=== PATIENT | female | born 1945 | race Caucasian/White ===

== ENCOUNTER 2019-07-19 18:54 | Emergency (ER) | payer MEDICARE ==
--- OUTSIDE RECORDS SUMMARY | 2019-07-19 18:59 | XMS REPORT | Continuity of Care Document ---
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 HST 10/31/17: AHI 20.9, O2 kyle 82% Social History Type Date Description Comments Sex Unknown Tobacco Use Start: Unknown End: Former Cigarette Smoker Unknown Smoking Status Reviewed: 06/21/19 Former Cigarette Smoker ETOH Use consumes 3-4 glasses per week Tobacco Use Start: Unknown End: Patient is a former smoker Unknown Recreational Drug Use Denies Drug Use Exercise Type/Frequency Exercises sporadically Allergies, Adverse Reactions, Alerts Active Allergies Reaction Severity Comments Date Penicillin Rash 10/08/2017 Simvastatin Elevated LFTs 10/08/2017 Tricor Nausea and Vomiting 10/08/2017 Metoprolol Fatigue 10/08/2017 Advair Atrial Fibrillation 10/08/2017 Lipitor Myalgias 10/08/2017 Lisinopril Cough 10/08/2017 Medications Active Medications SIG Qnty Indications Ordering Provider Date Levalbuterol Tartrate 1 puff 2-3 times 15gm J45.909 Cary Yusuf MD daily as needed 45mcg/Act Aerosol for sob Spiriva Respimat 1 puff one time 4gm J45.909 Cary Yusuf MD 09/24/2018 per day 1.25mcg/Act Aerosol Citalopram 1 by mouth every Unknown Hydrobromide day 20mg Tablets Omeprazole 1 by mouth every Unknown 20mg Capsules day DR Flovent HFA 2 puffs twice 36gm Verena 220mcg/Act daily, rinse MOISÉS Meade Aerosol mouth after use as needed Rosuvastatin Calcium 1 by mouth every Unknown 5mg night at bedtime Tablets Vitamin D3 1 by mouth every Unknown 1000Unit day Capsules Caltrate 600 1 tab by mouth Unknown 1500(600Ca) daily mg Tablets Fluticasone Propionate 2 sprays each Unknown nostril qd as 50mcg/Act Suspension needed Cetirizine HCL 1 by mouth every Unknown 10mg day Tablets Crestor 1 by mouth every Unknown 5mg Tablets day Proair HFA 2 puffs every 4 Unknown 108(90Base) hours as needed mcg/Act Aerosol Eliquis 1 by mouth twice Unknown 5mg Tablets a day Rosario Allergy 1 by mouth every Unknown 180mg day Tablets Nasacort Allergy 24HR 2 puffs each nare Unknown every in the 55mcg/Act Aerosol morning Immunizations Description No Information Available Vital Signs Date Vital Result Comment 06/21/2019 11:16am Height 61 inches 5'1" Weight 136.00 lb Heart Rate 74 /min BP Systolic 118 mmHg BP Diastolic 66 mmHg O2 % BldC Oximetry 97 % BMI (Body Mass Index) 25.7 kg/m2 04/12/2019 12:56pm Height 61 inches 5'1" Weight 137.00 lb Heart Rate 78 /min BP Systolic 134 mmHg BP Diastolic 60 mmHg O2 % BldC Oximetry 98 % BMI (Body Mass Index) 25.9 kg/m2 Results Description No Information Available Procedures Date Code Description Status 05/26/2019 65537 Holter Monitor Review (24 hr)dr mayberry & interp only Completed 05/25/2019 44076 ECHO Transthoracic, Real-Time 2D With Doppler And Completed Color Flow 05/25/2019 08401 ECHO Transthoracic, Real-Time 2D With Doppler And Completed Color Flow 05/24/2019 97747 ECG Monitor/Recording W/Visual Superimposition Completed Scanning 05/24/2019 89813 ECG Monitor/Recording W/Visual Superimposition Completed Scanning 02/10/2019 43726 Polysomnography Sleep Staging 4+ Parameters W/Cpap Completed 02/16/2017 [id number] Colonoscopy Completed 03/21/2016 [id number] Mammogram Completed 02/21/2015 [id number] Mammogram Completed 01/18/2014 [id number] Mammogram Completed 07/07/2012 [id number] Bone Mineral Density Test Completed 07/07/2012 [id number] Mammogram Completed 08/28/2011 [id number] Colonoscopy Completed 05/22/2011 [id number] Mammogram Completed 06/01/2009 [id number] Mammogram Completed 03/13/2008 [id number] Bone Mineral Density Test Completed 03/13/2008 [id number] Mammogram Completed 12/23/2006 [id number] Mammogram Completed 11/24/2005 [id number] Bone Mineral Density Test Completed 07/18/2005 [id number] Colonoscopy Completed 01/07/1999 [id number] Colonoscopy Completed Medical Devices Description No Information Available Encounters Type Date Location Provider Dx Diagnosis Office Visit 04/12/2019 [facility] Verena G47.33 Obstructive sleep 1:00p [facility] apnea (adult) [employer] (pediatric) 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 J45.909 Unspecified asthma, uncomplicated Office Visit 03/01/2019 [facility] Verena G47.33 Obstructive sleep 1:00p [facility] Meade apnea (adult) [facility] (pediatric) J45.909 Unspecified asthma, uncomplicated Office Visit 12/30/2018 [facility] Verena J45.909 Unspecified 11:30a [facility] Meade 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, 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 G47.33 Obstructive sleep apnea (adult) (pediatric) Assessments Date Code Description Provider 06/21/2019 G47.33 Obstructive sleep apnea (adult) Cary Yusuf MD (pediatric) 06/21/2019 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 Cary Yusuf MD classified elsewhere 06/21/2019 J45.909 Unspecified asthma, uncomplicated Cary Yusuf MD 05/26/2019 R00.2 Palpitations Victorino Bhatia, DO FACC 05/26/2019 I48.0 Paroxysmal atrial fibrillation Victorino Bhatia, DO FACC 05/25/2019 R00.2 Palpitations Victorino Bhatia, DO FACC 05/25/2019 R00.2 Palpitations Traveling ECHO 1 05/24/2019 R00.2 Palpitations Victorino Pizanono, DO FACC 05/24/2019 R00.2 Palpitations Nurse Visit IC 05/24/2019 I48.0 Paroxysmal atrial fibrillation Victorino Bhatia, DO FACC 05/24/2019 I48.0 Paroxysmal atrial fibrillation Nurse Visit IC 04/12/2019 G47.33 Obstructive sleep apnea (adult) Verena Meade NP (pediatric) 04/12/2019 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 Verena Meade NP classified elsewhere 04/12/2019 J45.909 Unspecified asthma, uncomplicated Verena Meade SENIOR QUANTITY SURVEYOR 03/01/2019 G47.33 Obstructive sleep apnea (adult) Verena Meade NP (pediatric) 03/01/2019 J45.909 Unspecified asthma, uncomplicated Verena Meade, SENIOR QUANTITY SURVEYOR 02/10/2019 G47.33 Obstructive sleep apnea (adult) Cary Yusuf MD (pediatric) 12/30/2018 J45.909 Unspecified asthma, uncomplicated Verena Meade, SENIOR QUANTITY SURVEYOR 12/30/2018 G47.33 Obstructive sleep apnea (adult) Verena Meade NP (pediatric) Plan of Treatment Future Appointment(s):08/03/2019 10:45 am - Cary Yusuf MD [facility]06/21/2019 - Cary Yusuf MDG47.33 Obstructive sleep apnea (adult) (pediatric)Follow up:6 wferqA61.37 Central sleep apnea in conditions classified tecjnsxluJ05.909 Unspecified asthma, uncomplicated Functional Status Description No Information Available Mental Status Description No Information Available Referrals Description No Information Available
--- OUTSIDE RECORDS SUMMARY | 2019-07-19 18:59 | XMS REPORT | Continuity of Care Document ---
:1945 External Reference #:[id number] Author Name Lilliam Modi M.D. (transmitted by agent of provider Nandini Randall) Address [address] 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 HST 10/31/17: AHI 20.9, O2 kyle 82% Supraventricular premature beats Lilliam Modi M.D. Onset: 07/04/2019 Atrial flutter Lilliam Modi M.D. Onset: 07/04/2019 Paroxysmal atrial fibrillation Lilliam Modi M.D. Onset: 07/04/2019 Social History Type Date Description Comments Sex Unknown Tobacco Use Start: Unknown End: Former Cigarette Smoker Unknown Smoking Status Reviewed: 07/04/19 Former Cigarette Smoker ETOH Use consumes 3-4 glasses per week ETOH Use consumes 1-2 glasses of wine per week Tobacco Use Start: Unknown End: [...] Medications SIG Qnty Indications Ordering Provider Date Multaq 1 by mouth twice 180tabs I48.0 Lilliam Modi, 07/04/2019 400mg Tablets a day M.Medina Spiriva Respimat 1 puff one time 4gm J45.909 Cary Yusuf, 09/24/2018 per day 1.25mcg/Act Aerosol Citalopram 1 by mouth every Unknown Hydrobromide day 20mg Tablets Omeprazole 1 by mouth every Unknown 20mg day Capsules DR Flovent HFA 2 puffs twice 36gm Verena 220mcg/Act daily, rinse Halina, EXPERIMENTAL PSYCHOLOGIST Aerosol mouth after use as needed Rosuvastatin Calcium 1 by mouth every Unknown night at bedtime 5mg Tablets Vitamin D3 1 by mouth every Unknown 1000Unit day Capsules Caltrate 600 1 tab by mouth Unknown daily 1500(600Ca) mg Tablets Cetirizine HCL 1 by mouth every Unknown 10mg day Tablets Crestor 1 by mouth every Unknown 5mg Tablets day Proair HFA 2 puffs every 4 Unknown 108(90Base) hours as needed mcg/Act Aerosol Eliquis 1 by mouth twice Unknown 5mg Tablets a day Rosario Allergy 1 by mouth every Unknown 180mg day Tablets Nasacort Allergy 24HR 2 puffs each Unknown nare every in 55mcg/Act Aerosol the morning Immunizations Description No Information Available Vital Signs Date Vital Result Comment 07/04/2019 1:56pm Height 61 inches 5'1" Weight 142.00 lb with shoes Heart Rate 74 /min BP Systolic 122 mmHg Ra BP Diastolic 66 mmHg Ra BP Systolic Sitting 118 mmHg LA BP Diastolic Sitting 62 mmHg LA BP Systolic Standing 120 mmHg BP Diastolic Standing 82 mmHg BMI (Body Mass Index) 26.8 kg/m2 Ejection Fraction 60-65% Echo 05/25/2019 06/21/2019 11:16am Height 61 inches 5'1" Weight 136.00 lb Heart Rate 74 /min BP Systolic 118 mmHg BP Diastolic 66 mmHg O2 % BldC Oximetry 97 % BMI (Body Mass Index) 25.7 kg/m2 Results Description No Information Available Procedures Date Code Description Status 07/04/2019 66746 EKG Tracing & Interpretation Completed 05/26/2019 72745 Holter Monitor Review (24 hr)dr mayberry & interp only Completed 05/25/2019 86393 ECHO Transthoracic, Real-Time 2D With Doppler And Completed Color Flow 05/25/2019 35719 ECHO Transthoracic, Real-Time 2D With Doppler And Completed Color Flow 05/24/2019 70792 ECG Monitor/Recording W/Visual Superimposition Completed Scanning 05/24/2019 84226 ECG Monitor/Recording W/Visual Superimposition Completed Scanning 02/10/2019 59193 Polysomnography Sleep Staging 4+ Parameters W/Cpap Completed 02/16/2017 [id number] Colonoscopy Completed 03/21/2016 [id number] Mammogram Completed 02/21/2015 [id number] Mammogram Completed 01/18/2014 [id number] Mammogram Completed 07/07/2012 [id number] Bone Mineral Density Test Completed 07/07/2012 [id number] Mammogram Completed 08/28/2011 [id number] Colonoscopy Completed 05/22/2011 [id number] Mammogram Completed 06/01/2009 [id number] Mammogram Completed 03/13/2008 [id number] Bone Mineral Density Test Completed 03/13/2008 [id number] Mammogram Completed 12/23/2006 [id number] Mammogram Completed 11/24/2005 [id number] Bone Mineral Density Test Completed 07/18/2005 [id number] Colonoscopy Completed 01/07/1999 [id number] Colonoscopy Completed Medical Devices Description No Information Available Encounters Type Date Location Provider Dx Diagnosis Office Visit 06/21/2019 [facility] And Cary Yusuf, G47.33 Obstructive sleep 11:30a [facility] apnea (adult) [facility] (pediatric) 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 J45.909 Unspecified asthma, uncomplicated Office Visit 04/12/2019 [facility] Verena G47.33 Obstructive sleep 1:00p [facility] Meade apnea (adult) [facility] (pediatric) 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 07/04/2019 I48.92 Unspecified atrial flutter Lilliam Modi M.D. 07/04/2019 R07.9 Chest pain, unspecified Lilliam Modi M.D. 07/04/2019 J44.9 Chronic obstructive pulmonary disease, Lilliam Modi M.D. unspecified 07/04/2019 G47.33 Obstructive sleep apnea (adult) Lilliam Modi M.D. (pediatric) 07/04/2019 I49.1 Atrial premature depolarization Lilliam Modi M.D. 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 Bhatia, DO FACC 05/26/2019 I48.0 Paroxysmal atrial fibrillation Victorino S. Bhatia, DO FACC 05/25/2019 R00.2 Palpitations Victorino S. Bhatia, DO FACC 05/25/2019 R00.2 Palpitations Traveling ECHO 1 05/24/2019 R00.2 Palpitations Victorino S. Bhatia, DO FACC 05/24/2019 R00.2 Palpitations Nurse Visit IC 05/24/2019 I48.0 Paroxysmal atrial fibrillation Victorino S. 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 at [facility]07/12/2019 11:00 am - Lilliam Modi M.D. at [facility]08/03/2019 10:45 am - Cary Yusuf MD at [facility]07/04/2019 - Lilliam Modi M.D.I48.0 Paroxysmal atrial fibrillationNew Medication:Multaq 400 mg - 1 by mouth twice a dayNew Orders: Stress Test, Exercise Nuclear, Ordered: 07/04/19Comments:Today you are in normal rhythm, early beats, NOT afib.NEW MEDICINE: Multaq to help keep you in the normal rhythm.Follow up:OV after stress test, with ECG (new medication) .Recommendations:NEW: MULTAQ 400 mg twice daily Continue Eliquis for stroke prevention. Avoid alcohol. Continue CPAP. Continue anticoagulation. OPTIONS: Future, may send you to an EP MD for ablation.I48.92 Unspecified atrial flutterComments:Strips suspicious for flutter.R07.9 Chest pain, unspecifiedNew Orders:Stress Test, Exercise Nuclear, Ordered: 07/04/19J44.9 Chronic obstructive pulmonary disease, unspecifiedComments:Longstanding Dr Yusuf follows.G47.33 Obstructive sleep apnea (adult) (pediatric)Comments:on CPAP, Moderate.I49.1 Atrial premature depolarization Functional Status Description No Information Available Mental Status Description No Information Available Referrals Description No Information Available
--- OUTSIDE RECORDS SUMMARY | 2019-07-19 18:59 | XMS REPORT | Continuity of Care Document ---
:1945 External Reference #:[id number] Author Name Lilliam Modi M.D. (transmitted by agent of provider Nydia Mera) Address [address] 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 HST 10/31/17: AHI 20.9, O2 kyle 82% Tricuspid valve disorder, non-rheumatic Lilliam Modi M.D. Onset: 07/04/2019 Supraventricular premature beats Lilliam Modi M.D. Onset: [...] Medications SIG Qnty Indications Ordering Provider Date Sotalol HCL (AF) 2 tab by 180tabs Lilliam Modi, 07/07/2019 80mg mouth twice a M.D. Tablets day Spiriva Respimat 1 puff one time 4gm J45.909 Cary Yusuf, 09/24/2018 per day 1.25mcg/Act Aerosol Citalopram 1 by mouth every Unknown Hydrobromide day 20mg Tablets Omeprazole 1 by mouth every Unknown 20mg day Capsules DR Flovent HFA 2 puffs twice 36gm Verena 220mcg/Act daily, rinse Halina, SUPERVISOR WHEEL SHOP Aerosol mouth after use as needed Rosuvastatin [...] nare every in 55mcg/Act Aerosol the morning History Medications Multaq 1 by mouth 180tabs I48.0 Lilliam Modi M.D. 07/04/2019 - 400mg twice a day 07/07/2019 Tablets Medications Administered in Office Medication SIG Qnty Indications Ordering Provider Date Inj, Regadenoson, 0.1 MG Favio Banegas M.D., 07/12/2019 Injection FACC, FASNC Technetium TC 99M Favio Banegas M.D., 07/12/2019 Tetrofosmin, Per Unit Dose KAMERON EID Up To 40 Millicuries Injection Technetium TC 99M Favio Banegas M.D., 07/12/2019 Tetrofosmin, Per Unit Dose FACCKAMERON Up To 40 Millicuries Injection Immunizations Description No Information Available Vital Signs [...] Available Procedures Date Code Description Status 07/04/2019 13020 EKG Tracing & Interpretation Completed 05/26/2019 20122 Holter Monitor Review (24 hr)dr review & interp only Completed 05/25/2019 25121 ECHO Transthoracic, Real-Time 2D With Doppler And Completed Color Flow 05/25/2019 63744 ECHO Transthoracic, Real-Time 2D With Doppler And Completed Color Flow 05/24/2019 29762 ECG Monitor/Recording W/Visual Superimposition Completed Scanning 05/24/2019 63039 ECG Monitor/Recording W/Visual Superimposition Completed Scanning 02/10/2019 44673 Polysomnography Sleep Staging 4+ Parameters W/Cpap Completed 02/16/2017 [id number] Colonoscopy Completed 03/21/2016 [id number] Mammogram Completed 02/21/2015 [id number] Mammogram Completed 01/18/2014 [id number] Mammogram Completed 07/07/2012 [id number] Bone Mineral Density Test Completed 07/07/2012 [id number] Mammogram Completed 08/28/2011 [id number] Colonoscopy Completed 05/22/2011 [id number] Mammogram Completed 06/01/2009 [id number] Mammogram Completed 03/13/2008 [id number] Bone Mineral Density Test Completed 03/13/2008 [id number] Mammogram Completed 12/23/2006 [id number] Mammogram Completed 11/24/2005 [id number] Bone Mineral Density Test Completed 07/18/2005 [id number] Colonoscopy Completed 01/07/1999 [id number] Colonoscopy Completed Medical Devices Description No Information Available Encounters Type Date Location Provider Dx Diagnosis Office Visit 07/04/2019 [facility] Lilliam Ly, I48.0 Paroxysmal atrial 2:10p Of [facility] [place] fibrillation I48.92 Unspecified atrial flutter R07.9 Chest pain, unspecified J44.9 Chronic obstructive pulmonary disease, unspecified G47.33 Obstructive sleep apnea (adult) (pediatric) I49.1 Atrial premature depolarization I36.1 Nonrheumatic tricuspid (valve) insufficiency Office Visit 06/21/2019 11:30a Pulmonology And Cary G47.33 Obstructive sleep [facility] [place] apnea (adult) [facility] (pediatric) 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 J45.909 Unspecified asthma, uncomplicated Office Visit 04/12/2019 [facility] Verena G47.33 Obstructive sleep 1:00p [facility] Meade apnea (adult) [facility] (pediatric) 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 07/04/2019 I48.92 Unspecified atrial flutter Lilliam Modi M.D. 07/04/2019 R07.9 Chest pain, unspecified Lilliam Modi M.D. 07/04/2019 J44.9 Chronic obstructive pulmonary disease, Lilliam Modi M.D. unspecified 07/04/2019 G47.33 Obstructive sleep apnea (adult) Lilliam Modi M.D. (pediatric) 07/04/2019 I49.1 Atrial premature depolarization Lilliam Modi M.D. 07/04/2019 I36.1 Nonrheumatic tricuspid (valve) Lilliam Modi M.D. 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 Cary Yusuf MD classified elsewhere 06/21/2019 J45.909 Unspecified asthma, uncomplicated Cary Yusuf MD 05/26/2019 R00.2 Palpitations Victorino Bhatia, DO [facility] 05/26/2019 I48.0 Paroxysmal atrial fibrillation Victorino Bhatia, DO [facility] 05/25/2019 R00.2 Palpitations Victorino Bhatia, DO [facility] 05/25/2019 R00.2 Palpitations Traveling ECHO 1 05/24/2019 R00.2 Palpitations Victorino Bhatia, DO [facility] 05/24/2019 R00.2 Palpitations Nurse Visit IC 05/24/2019 I48.0 Paroxysmal atrial fibrillation Victorino Bhatia, DO [facility] 05/24/2019 I48.0 Paroxysmal atrial fibrillation Nurse Visit IC 04/12/2019 G47.33 Obstructive sleep apnea (adult) Verena Meade NP (pediatric) 04/12/2019 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 Verena Meade NP classified elsewhere 04/12/2019 J45.909 Unspecified asthma, uncomplicated Verena Meade NP 03/01/2019 G47.33 Obstructive sleep apnea (adult) Verena Meade NP (pediatric) 03/01/2019 J45.909 Unspecified asthma, uncomplicated Verena Meade NP 02/10/2019 G47.33 Obstructive sleep apnea (adult) Cary Yusuf MD (pediatric) Plan of Treatment Future Appointment(s):07/22/2019 11:00 am - Radha Flores NMichelle at [facility]08/03/2019 10:45 am - Cary Yusuf MD at [facility]07/04/2019 - Lilliam Modi M.D.I48.0 Paroxysmal atrial fibrillationNew Medication:Multaq 400 mg - 1 by mouth twice a dayComments:Today you are in normal rhythm, early beats, NOT afib.NEW MEDICINE: Multaq to help keep you in the normal rhythm.Follow up:OV after stress test, with ECG (new medication).Recommendations:NEW: MULTAQ 400 mg twice daily Continue Eliquis for stroke prevention. Avoid alcohol. Continue CPAP. Continue anticoagulation. OPTIONS: Future, may send you to an EP MD for ablation.I48.92 Unspecified atrial flutterComments:Strips suspicious for flutter.R07.9 Chest pain, memmgcjpcvqM10.9 Chronic obstructive pulmonary disease, unspecifiedComments: Longstanding Dr Yusuf follows.G47.33 Obstructive sleep apnea (adult) (pediatric )Comments:on CPAP, Moderate.I49.1 Atrial premature depolarizationComments:On ECG today.I36.1 Nonrheumatic tricuspid (valve) insufficiencyComments:This is related to lungs and rhythm. Functional Status Description No Information Available Mental Status Description No Information Available Referrals Description No Information Available
--- OUTSIDE RECORDS SUMMARY | 2019-07-19 18:59 | XMS REPORT | Continuity of Care Document ---
:1945 External Reference #:[id number] Author Name Michele Brothers M.D. 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 Onset: 08/2014 pseudohole Nuclear senile cataract Victor Hugo Corbett M.D. Onset: 10/12/2014 Vitreous degeneration Victor Hugo Corbett M.D. Onset: 10/12/2014 Pseudophakia Victor Hugo Corbett M.D. Onset: 10/12/2014 Combined form of senile cataract Deloris Lara O.D. Onset: 04/16/2016 Social History Type Date Description Comments Sex Unknown ETOH Use Occasionally consumes alcohol Tobacco Use Start: Unknown Patient has never smoked Recreational Drug Use Never Used Drugs Smoking Status Reviewed: 06/08/19 Patient has never smoked Allergies, Adverse Reactions, Alerts Active Allergies Reaction Severity Comments Date Penicillins 10/11/2014 Medications Active Medications SIG Qnty Indications Ordering Provider Date Crestor Unknown 10mg Tablets Flovent HFA as needed Unknown 110mcg/Act Aerosol Prevacid Unknown 15mg Capsules Aspirin Low Dose 1 by mouth every Unknown 81mg day Tablets Omeprazole Unknown 20mg Capsules Rosuvastatin Calcium Unknown 5mg Tablets Cassie Cortez, 5mg Tablets MD Immunizations Description No Information Available Vital Signs Description No Information Available Results Description No Information Available Procedures Description No Information Available Medical Devices Description No Information Available Encounters Description No Information Available Assessments Date Code Description Provider 06/08/2019 H25.12 Age-related nuclear cataract, left eye Michele Brothers M.D. 06/08/2019 H35.341 Macular cyst, hole, or pseudohole, right Mihcele Brothers M.D. eye Plan of Treatment 06/08/2019 - Michele Brothers M.D.H25.12 Age-related nuclear cataract, left eyeComments:Smoking can increase the risk of developing or worsening any eye related disease, as well as affect your overall health. If you are a smoker, we strongly recommend that you quit.If you are not a smoker, we strongly recommend that you do not start. You have been diagnosed with a cataract in your lefteye. If you are happy with your vision as it is now, then we will see you at your next scheduled appointment. If you feel like your vision is getting worse before your scheduled appointment, please call Pamela at .Follow up:1 Year Follow Up DFE You can expect to have your eyes dilated at your next visit. If Dr. Brothers orders any additional testing, it may require extra time. We recommend that you bring sunglasses, as dilation drops often make you light sensitive until they wear off. We always recommend you bring someone to drive you home if you are uncomfortable driving with your eyes dilated. If you have any questions before your next visit, feel free to call our office at .H35.341 Macular cyst, hole, or pseudohole, right eye Functional Status Description No Information Available Mental Status Description No Information Available Referrals Description No Information Available
[2019-07-19 19:39] LABS: ABS Basophils 0.1 10^3/ul (0-0.2); ABS Eosinophils 0.8 10^3/ul (0-0.6); ABS Lymphocytes 2.2 10^3/ul (1.0-4.8); ABS Monocytes 0.4 10^3/ul (0-0.8); Eosinophil % 11.9 %; Hematocrit 40 % (35-47); Hemoglobin 13.6 g/dL (12.0-16.0); Lymphocyte % 34.3 %; Mean Corpuscular HGB Conc 34 g/dL (31-36); Mean Corpuscular Hemoglobin 33 pg (27-31); Mean Corpuscular Volume 97 fL (80-97); Mean Platelet Volume 7.5 fL (7.4-10.4); Platelet Count 188 10^3/uL (150-450); Red Blood Count 4.09 10^6 /uL (3.70-4.87); Red Cell Distribution Width 12 % (10-15); White Blood Count 6.4 10^3/uL (3.5-10.8)
[2019-07-19 19:52] LABS: INR 1.08 (0.82-1.09)
[2019-07-19 19:57] LABS: Albumin/Globulin Ratio 1.5 (1-3); BUN/Creatinine Ratio 12.9 (8-20); Calcium 10.2 mg/dL (8.6-10.3); EGFR African American 79.1 (>60); EGFR Non-African American 65.4 (>60); Globulin 2.6 g/dL (2-4); Potassium 3.9 mmol/L (3.5-5.0); Total Bilirubin 0.4 mg/dL (0.2-1.0); Total Protein 6.6 g/dL (6.4-8.9)
--- NOTE | 2019-07-19 21:46 | ED ---
HPI Chest Pain - HPI Summary HPI Summary: Patient is a 74 y/o F presenting to [facility] via EMS for chief complaint of substernal chest pain. CP onset around 1500 07/19/19 while the patient was watching TV. She initially thought she was experiencing GERD and took some of her omeprazole. However, she did not experience relief in Sx. Patient states that she also experienced numbness of her arms bilaterally. She checked her BP and noted it was elevated. Patient states that she has not experienced a similar previous presentation of Sx. Patient states that the pain has decreased in its severity, noting that at its worst the pain was a 8-9/10 in severity and is now a 4/10. No other medications were taken BUTTONHOLER. She reports Hx of afib and is currently on Eliquis. She denies Hx of [place] but notes Hx of asthma. FMHx of cardiac disease, aneurysm, and CVA reported. PSHx of deviated septum repair reported. She is a former smoker of 40 years, denies alcohol and substance usage. Home medications and allergies are reviewed. - History of Current Complaint Chief Complaint: EDChestPainROMI Time Seen by Provider: 07/19/19 20:41 Hx Obtained From: Patient Onset/Duration: Started Hours Ago, Still Present Timing: Constant, Lasting Hours Current Severity: Moderate Pain Intensity: 4 Pain Scale Used: 0-10 Numeric Chest Pain Location: Lower Sternal Associated Signs and Symptoms: Positive: Chest Pain, Numbness - arms, Other: - elevated BP - Allergy/Home Medications Allergies/Adverse Reactions: Allergies Allergy/AdvReac Type Severity Reaction Status Date / Time latex Allergy Itching Verified 07/19/19 19:04 Penicillins Allergy Rash Verified 07/19/19 19:04 Home Medications: Home Medications Apixaban* [Eliquis*] 5 mg PO BID 07/19/19 [History Confirmed 07/19/19] Cholecalciferol TAB* [Vitamin D TAB*] 1,000 unit PO DAILY 07/19/19 [History Confirmed 07/19/19] Citalopram TAB* [CeleXA TAB*] 20 mg PO DAILY 07/19/19 [History Confirmed ] Fluticasone HFA 220 mcg(NF) [Flovent Hfa 220 Mcg(NF)] 2 puff INH DAILY 07/19/19 [History Confirmed 07/19/19] Levalbuterol HFA INHALER* [Xopenex Hfa Inhaler*] 1 puff INH TID 07/19/19 [ History Confirmed 07/19/19] Omeprazole CAP (NF) [Prilosec CAP* 20 MG] 20 mg PO DAILY 07/19/19 [History Confirmed 07/19/19] Rosuvastatin (NF) [Crestor (NF)] 5 mg PO QPM 07/19/19 [History Confirmed ] Sotalol TAB* [Betapace 80 MG TAB*] 40 mg PO BID 07/19/19 [History Confirmed 02/27] Tiotropium CAPSULE (NF) [Spiriva CAPSULE (NF)] 1 puff INH DAILY 07/19/19 [ History Confirmed 07/19/19] PMH/Surg Hx/FS Hx/Imm Hx Endocrine/Hematology History: Denies: Hx Diabetes Cardiovascular History: Reports: Other Cardiovascular Problems/Disorders - HX OF AFIB Denies: Hx Hypertension, Hx Pacemaker/ICD Respiratory History: Reports: Hx Asthma, Other Respiratory Problems/Disorders - CHRONIC SINSUTIS GI History: Reports: Hx Gastroesophageal Reflux Disease, Hx Hiatal Hernia Musculoskeletal History: Reports: Hx Arthritis - HANDS, Hx Osteoporosis Denies: Hx Rheumatoid Arthritis Sensory History: Denies: Hx Cataracts, Hx Contacts or Glasses, Hx Hearing Aid Opthamlomology History: Denies: Hx Cataracts, Hx Contacts or Glasses Neurological History: Reports: Other Neuro Impairments/Disorders - PAIN CLINIC PATIENT Psychiatric History: Reports: Hx Anxiety Denies: Hx Panic Disorder - Cancer History Hx Chemotherapy: No Hx Radiation Therapy: No - Surgical History Surgery Procedure, Year, and Place: 1997 [place]. [place] [facility] [place] 08/2013 [place]. RIGHT CATARACT Hx Anesthesia Reactions: No Infectious Disease History: No Infectious Disease History: Denies: Traveled Outside the [place] in Last 30 Days - Family History Known Family History: Positive: Cardiac Disease, Other - CVA, aneurysm - Social History Alcohol Use: Occasionally Substance Use Type: Reports: None Smoking Status (MU): Former Smoker - Additional Comments History Additional Comments: PMHx of afib, GERD, asthma PSHx of deviated septum FMHx of cardiac disease, CVA, aneurysm Review of Systems - ROS Summary Review of Systems Summary: Home Medications Medication Instructions Recorded Confirmed Type Apixaban* [Eliquis*] 5 mg PO BID 07/19/19 07/19/19 History Cholecalciferol TAB* [Vitamin D 1,000 unit PO DAILY 07/19/19 07/19/19 History TAB*] Citalopram TAB* [CeleXA TAB*] 20 mg PO DAILY 07/19/19 07/19/19 History Fluticasone HFA 220 mcg(NF) 2 puff INH DAILY 07/19/19 07/19/19 History [Flovent Hfa 220 Mcg(NF)] Levalbuterol HFA INHALER* [Xopenex 1 puff INH TID 07/19/19 07/19/19 History Hfa Inhaler*] Omeprazole CAP (NF) [Prilosec CAP* 20 mg PO DAILY 07/19/19 07/19/19 History 20 MG] Rosuvastatin (NF) [Crestor (NF)] 5 mg PO QPM 07/19/19 07/19/19 History Sotalol TAB* [Betapace 80 MG TAB*] 40 mg PO BID 07/19/19 07/19/19 History Tiotropium CAPSULE (NF) [Spiriva 1 puff INH DAILY 07/19/19 07/19/19 History CAPSULE (NF)] Positive: Chest Pain, Other - elevated BP Positive: Numbness - arms All Other Systems Reviewed And Are Negative: Yes Physical Exam - Summary Physical Exam Summary: General: Well-developed, Well-nourished, Elderly female. No acute distress. HEENT: Normocephalic, Atraumatic. Eyes: Conjuctiva normal, PERRL. Oropharynx: Clear, mucous membranes moist, (-) exudates. Neck: Soft, FROM, (-) lymphadenopathy, (-) thyromegaly, (-) JVD. Cardiovascular: Normal sinus rhythm, (-) murmur. Lungs: Clear to auscultation bilaterally (-) wheezes, (-) rales, (-) rhonchi. Abdomen: Soft, non-tender, non-distended, (-) organomegaly, normal bowel sounds. Back: (-) CVA tenderness Extremities: No edema. Skin: Warm, dry, (-) rash. Neuro: Alert and oriented x3, moves all extremities equally. No ataxia. No gait disturbance. No sensory deficit. Normal strength, normal sensation. Psychiatric: Mood normal, affect normal Triage Information Reviewed: Yes Vital Signs On Initial Exam: Initial Vitals Temp Pulse Resp BP Pulse Ox 97.6 F 55 16 174/75 98 07/19/19 19:01 07/19/19 19:01 07/19/19 19:01 07/19/19 19:01 07/19/19 19:01 Vital Signs Reviewed: Yes Procedures - Sedation Patient Received Moderate/Deep Sedation with Procedure: No Diagnostics - Vital Signs Vital Signs Temp Pulse Resp BP Pulse Ox 07/19/19 19:01 97.6 F 55 16 174/75 98 - Laboratory Lab Results: Lab Results 07/19/19 07/19/19 07/19/19 Range/Units 19:22 19:22 19:22 WBC 6.4 (3.5-10.8) 10^3/uL RBC 4.09 (3.70-4.87) 10^6 /uL Hgb 13.6 (12.0-16.0) g/dL Hct 40 (35-47) % MCV 97 (80-97) fL MCH 33 H (27-31) pg MCHC 34 (31-36) g/dL RDW 12 (10-15) % Plt Count 188 (150-450) 10^3/uL MPV 7.5 (7.4-10.4) fL Neut % (Auto) 46.3 % Lymph % (Auto) 34.3 % Yancey % (Auto) 6.3 % Eos % (Auto) 11.9 % Baso % (Auto) 1.2 % Absolute Neuts (auto) 3.0 (1.5-7.7) 10^3/ul Absolute Lymphs (auto) 2.2 (1.0-4.8) 10^3/ul Absolute Monos (auto) 0.4 (0-0.8) 10^3/ul Absolute Eos (auto) 0.8 H (0-0.6) 10^3/ul Absolute Basos (auto) 0.1 (0-0.2) 10^3/ul Absolute Nucleated RBC 0.0 10^3/ul Nucleated RBC % 0.0 INR (Anticoag Therapy) 1.08 (0.82-1.09) Sodium 135 (135-145) mmol/L Potassium 3.9 (3.5-5.0) mmol/L Chloride 102 (101-111) mmol/L Carbon Dioxide 29 (22-32) mmol/L Anion Gap 4 (2-11) mmol/L BUN 11 (6-24) mg/dL Creatinine 0.85 (0.51-0.95) mg/dL Est GFR ( Amer) 79.1 (>60) Est GFR (Non-Af Amer) 65.4 (>60) BUN/Creatinine Ratio 12.9 (8-20) Glucose 92 (70-100) mg/dL Calcium 10.2 (8.6-10.3) mg/dL Total Bilirubin 0.40 (0.2-1.0) mg/dL AST 19 (13-39) U/L ALT 21 (7-52) U/L Alkaline Phosphatase 84 (34-104) U/L Troponin I 0.00 (<0.03) ng/mL Total Protein 6.6 (6.4-8.9) g/dL Albumin 4.0 (3.2-5.2) g/dL Globulin 2.6 (2-4) g/dL Albumin/Globulin Ratio 1.5 (1-3) Result Diagrams: 07/19/19 19:22 07/19/19 19:22 Lab Statement: Any lab studies that have been ordered have been reviewed, and results considered in the medical decision making process. - Radiology CXR Radiology Interpretation Completed By: ED Physician Summary of Radiographic Findings: No pleural effusion, no obvious infiltrate, pending official report. - EKG 1859 Cardiac Rate: Bradycardia - rate of 58 BPM EKG Rhythm: Sinus Bradycardia Summary of EKG Findings: EKG showed sinus bradycardia with rate of 58 BPM, no STEMI. ED physician reviewed and interpreted this EKG. Re-Evaluation - Re-Evaluation First Eval Re-Evaluation Time: 00:10 Change: Improved Comment: Patient reports the pain is improved to a 2/10. She will receive GI cocktail and be discharged to home. Chest Pain Course/Dx - Course Course Of Treatment: 74-year-old female presents with chest pain. Patient states about 3:00 this afternoon she was watching TV and experienced some discomfort midsternally. She states she has known reflux and she thought it was that. She did take omeprazole at that time. Symptoms did not improve. She then developed tingling in both of her arms. She decided to check her blood pressure at that time and found it to be quite elevated. Pain at its worst was 8-9 out of 10. Currently 4 out of 10. Patient states she recently had a stress test which she did not meet the target heart rate. So then she had a nuclear stress test. She states she couldn't tolerate that either. Those tests are not available in our system. Patient does take eliquis for A. fib. No history of coronary artery disease. She's never had any symptoms like this before. No significant findings on physical exam. Workup demonstrates no significant abnormality including a negative serial troponins. No EKG changes. Patient given nitroglycerin 1 and aspirin for chest pain. No change in her symptoms. Patient given A GI cocktail. Patient discharged to home. Advise follow-up with PCP. Follow-up sooner for any worsening symptoms. - Diagnoses Provider Diagnoses: Chest pain Discharge ED - Sign-Out/Discharge Documenting (check all that apply): Patient Departure - discharge - Discharge Plan Condition: Stable Disposition: HOME Patient Education Materials: Chest Pain (ED) Referrals: Cassie Reyes MD [Primary Care Provider] - 3 Days Additional Instructions: PLEASE RETURN TO ED FOR ANY NEW OR CONCERNING SYMPTOMS. PLEASE FOLLOW UP WITH YOUR PRIMARY CARE PHYSICIAN WITHIN THREE DAYS. - Billing Disposition and Condition Condition: STABLE Disposition: Home - Attestation Statements Document Initiated by Puja: Yes Documenting Scribe: DARIO KEY Provider For Whom Puja is Documenting (Include Credential): PINA WOODALL MD Scribe Attestation: DARIO Nolasco, scribed for PINA WOODALL MD on 07/23/19 at 0216. Scribe Documentation Reviewed: Yes Provider Attestation: The documentation as recorded by the DARIO miller accurately reflects the service I personally performed and the decisions made by me, PINA WOODALL MD Status of Scribyelitza Document: Viewed
[2019-07-19] MEDS ORDERED: Aspirin 81 mg CHEW TAB* 81 MG TAB.CHEW PO ONE (22:12)
[2019-07-19] MEDS ORDERED: Nitroglycerin TAB 0.4 MG* 0.4 MG TAB SL ONE (22:13)
[2019-07-20] MEDS ORDERED: Al Hydrox/Mg Hydrox/Simet LIQ* 30 ML UDC PO ONE (00:07)
[2019-07-20] MEDS ORDERED: Lidocaine 2% VISCOUS* 15 ML UDC PO ONE (00:07)
[2019-07-20 00:49] VITALS: BP 152/88
== END 2019-07-20 00:48 | disposition home or self-care (01) ==
LOC: ED 18:54
DX: R07.89 Other chest pain (principal); R20.0 Anesthesia of skin; R00.1 Bradycardia, unspecified; I48.91 Unspecified atrial fibrillation; Z79.01 Long term (current) use of anticoagulants; K21.9 Gastro-esophageal reflux disease without esophagitis; K44.9 Diaphragmatic hernia without obstruction or gangrene; Z88.0 Allergy status to penicillin; Z91.040 Latex allergy status; Z87.891 Personal history of nicotine dependence
CPT/HCPCS: 36415; 71045; 80053; 84484; 85025; 85610; 93005; 99283; A9270-GY

== ENCOUNTER 2024-05-13 14:10 | Observation (INO) ==
[2024-05-13 16:03] LABS: ABS Basophils 0.1 10^3/uL (0.0-0.1); ABS Eosinophils 0.5 10^3/uL (0.0-0.5); ABS Lymphocytes 1.4 10^3/uL (1.0-4.8); ABS Monocytes 0.4 10^3/uL (0.0-0.9); ABS Neutrophils 3.4 10^3/uL (1.5-7.6); Eosinophil % 8.9 %; Hematocrit 24.4 % (35-45); Hemoglobin 7.6 g/dL (11.5-14.3); Lymphocyte % 24.6 %; Mean Corpuscular Hemoglobin 23.9 pg (27-33); Mean Corpuscular Volume 77.2 fL (80-97); Mean Platelet Volume 7.2 fL (7.5-11.2); Platelet Count 280 10^3/uL (150-450); Red Blood Count 3.16 10^6/uL (3.63-4.92); Red Cell Distribution Width 17.1 % (12-17); White Blood Count 5.8 10^3/uL (3.8-11.8)
[2024-05-13] MEDS: Pantoprazole VIAL 40 MG VIAL IV ONE (16:28)
[2024-05-13 16:50] LABS: Albumin 4.2 g/dL (3.5-5.7); Albumin/Globulin Ratio 1.7 (1-3); Calcium 10.2 mg/dL (8.6-10.3); Creatinine, Serum 1.06 mg/dL (0.51-0.95); Globulin 2.5 g/dL (2-4); Potassium 4.1 mmol/L (3.5-5.0); Total Bilirubin 0.3 mg/dL (0.2-1.0); Total Protein 6.7 g/dL (6.4-8.9); eGFR CKD-EPI 53.8 (>60)
[2024-05-13] MEDS: Ferric Gluconate IV 250 MG in NS 0.9% 250 ml 200 ML IVPB SCH (18:02)
[2024-05-13] MEDS ORDERED: Pantoprazole VIAL 40 MG VIAL IV SCH (21:00)
[2024-05-14 06:30] LABS: ABS Basophils 0.1 10^3/uL (0.0-0.1); ABS Eosinophils 0.5 10^3/uL (0.0-0.5); ABS Lymphocytes 1.3 10^3/uL (1.0-4.8); ABS Monocytes 0.3 10^3/uL (0.0-0.9); ABS Neutrophils 2.4 10^3/uL (1.5-7.6); Hematocrit 21.4 % (35-45); Hemoglobin 6.7 g/dL (11.5-14.3); Lymphocyte % 29.3 %; Mean Corpuscular Hemoglobin 24.1 pg (27-33); Mean Corpuscular Volume 77.8 fL (80-97); Platelet Count 229 10^3/uL (150-450); Red Blood Count 2.76 10^6/uL (3.63-4.92); Red Cell Distribution Width 17.2 % (12-17); White Blood Count 4.6 10^3/uL (3.8-11.8)
[2024-05-14] MEDS: Pantoprazole VIAL 40 MG VIAL IV SCH (06:31)
[2024-05-14 06:57] LABS: Calcium 9.1 mg/dL (8.6-10.3); Creatinine, Serum 0.92 mg/dL (0.51-0.95); Magnesium 2.1 mg/dL (1.9-2.7); Potassium 3.7 mmol/L (3.5-5.0); eGFR CKD-EPI 63.7 (>60)
[2024-05-14 08:39] LABS: INR 1.32 (0.85-1.14)
[2024-05-14] MEDS: CMC:FLUTICAS/UMECLI/VILANT 200-62.5-25 MDI (NF) INH SCH (09:30)
[2024-05-14] MEDS: Sucralfate 1 gm SUSP 1 GM/10 ML UDC PO SCH (12:40)
[2024-05-15 00:18] LABS: Hematocrit 31.3 % (35-45); Hemoglobin 10.2 g/dL (11.5-14.3); Mean Corpuscular Hemoglobin 25.4 pg (27-33); Mean Corpuscular Hgb Conc 32.5 g/dL (31-36); Mean Corpuscular Volume 78.2 fL (80-97); Mean Platelet Volume 7.4 fL (7.5-11.2); Platelet Count 246 10^3/uL (150-450); Red Blood Count 4.01 10^6/uL (3.63-4.92); Red Cell Distribution Width 16.5 % (12-17)
[2024-05-15 07:07] LABS: ABS Basophils 0.1 10^3/uL (0.0-0.1); ABS Eosinophils 0.5 10^3/uL (0.0-0.5); ABS Lymphocytes 1.3 10^3/uL (1.0-4.8); ABS Monocytes 0.5 10^3/uL (0.0-0.9); ABS Neutrophils 3.4 10^3/uL (1.5-7.6); ABS Nucleated RBC 0.01 10^3/ul; Eosinophil % 8.9 %; Hemoglobin 10.6 g/dL (11.5-14.3); Lymphocyte % 22.7 %; Mean Corpuscular Hemoglobin 25.9 pg (27-33); Mean Corpuscular Hgb Conc 33.2 g/dL (31-36); Mean Corpuscular Volume 78.1 fL (80-97); Mean Platelet Volume 7.4 fL (7.5-11.2); Nucleated Red Blood Cells % 0.1 %/100WBC (0.0-0.8); Platelet Count 247 10^3/uL (150-450); Red Cell Distribution Width 16.8 % (12-17); White Blood Count 5.8 10^3/uL (3.8-11.8)
[2024-05-15 09:33] VITALS: BP 126/56
== END 2024-05-15 12:20 | disposition home or self-care (01) ==
LOC: EDHOLD 14:10 → ED 14:10 → SUATTDRO 16:24 → MED 19:58
PROVIDERS: ADMIT Hospitalist; ATTEND Student in an Organized Health Care Education/Training Program